=== PATIENT | male | born 1945 | race Caucasian/White ===

== ENCOUNTER 2022-10-22 12:53 | Outpatient (CLI) | payer MEDICARE, BC, SELFPAY | END 2022-10-22 12:54 | disposition home or self-care (01) | LOC: OP CLINIC 12:54 | PROVIDERS: PCP Family Medicine; Visit Provider Internal Medicine Gastroenterology | DX: Z12.11 Encounter for screening for malignant neoplasm of colon (principal); K63.5 Polyp of colon; K57.30 Diverticulosis of large intestine without perforation or abscess without bleeding; Z80.0 Family history of malignant neoplasm of digestive organs; Z86.010 Personal history of colon polyps | CPT/HCPCS: 45380; 88305; J2250; J3010 ==

== ENCOUNTER 2025-08-14 16:03 | Emergency (ER) | payer MEDICARE, BC, SELFPAY ==
--- OUTSIDE RECORDS SUMMARY | 2025-08-14 16:05 | XMS_ITS | Clinical Summary ---
Author Organization [employer] [facility] [employer] Address [address] [place] [id number] Care Team Providers Care Concrete Pile Driver Operator Name Role Phone Pcp, No Primary Care Provider Unavailabl e Allergies No known active allergies Medications multivitamin (MULTIPLE VITAMINS) tablet Take 1 tablet by mouth once daily. 0 0 Active cholecalciferol , Vitamin D3, 2,000 unit tablet Take 1 tablet by mouth once daily. 0 0 Active hydrocortisone -pramoxine 2.5%-1% RECTAL (ANALPRAM-HC) 2.5-1 % creamIndication s:Hemorrhoids, external Apply topically to affected area(s) 3 times daily if needed for Rectal Pain/Itching. 30 g 4 Active pantoprazole (PROTONIX) 40 mg delayed-release tabletIndicatio ns:Chronic GERD TAKE ONE TABLET BY MOUTH ONE TIME DAILY 90 Tablet 2 4 Active amLODIPine 10 mg tabletIndicatio ns:HTN (hypertension) TAKE ONE TABLET BY MOUTH ONE TIME DAILY 90 Tablet 2 5 Active BIPAPIndication s:YAJAIRA (obstructive sleep apnea) BIPAP machine for home use at pressure: 14/10 cmw , full face mask x1/3month with a full face cushion x1/mo 1 Each 11 5 Active BIPAPIndication s:YAJAIRA (obstructive sleep apnea) BIPAP machine for home use at pressure: 14/10 cmw , full face mask x1/3month with a full face cushion x1/mo 1 Each 11 4 10/30/20 25 Discontinu ed(Reorder (E-cancel not sent)) Active Problems Problem Noted Date Diagnosed Date Sensorineural hearing loss, bilateral 03/11/2025 Lumbar spondylitis 06/28/2023 Primary osteoarthritis of right knee 01/23/2023 Overview (01/23/2023): January 2023: Dr. Morales did left knee cortisone injection. Colon polyp 10/24/2022 Overview (10/24/2022): Colonoscopy 10/2022 TA, repeat in 5 years YAJAIRA 10/29/2012 AHI 72 06/26/2022 Assessment & Plan (06/26/2022 1:39 PM CDT): Stopped CPAP after weight loss. No current complaints. Factor 5 Leiden mutation, heterozygous 2 Torn meniscus 03/20/2022 Overview (03/20/2022): left knee HTN (hypertension) 03/20/2022 DDD (degenerative disc disease), lumbar 02/23/20 Overview (02/22/2022): ~ February 2022: L3-L4 [place] epidural steroid injection by Dr. Araujo. Encounters Date Type Department Care Team Description 08/13/2025 Travel 08/05/2025 3:00 PM CDT Office Visit [facility] [address] [place] [address] Fabien Jolly MD Sleep Follow-up 08/05/2025 Travel 08/04/2025 Orders Only [facility] Scanner 1 scan: (1-Ord) RESMED, SLEEP THERAPY REPORT, 08/04/2025 08/03/2025 Orders Only [facility] Scanner 1 scan: (1-Ord) RESMED, SLEEP THERAPY REPORT, 08/03/2025 07/31/2025 Travel 07/28/2025 1:30 PM CDT Office Visit [facility] [address] [place] [address] Tico Parikh, [facility] 07/27/2025 Travel 07/14/2025 2:30 PM CDT Office Visit [facility] [address] [place] [address] Tico Parikh AuD Hearing Aid (Fitting) 07/13/2025 Travel 06/29/2025 12:50 PM CDT Office Visit [facility] [address] [facility] [place] [address] Abdoul Scanlon MD Medicare ANNUAL (subsequent) Visit (79 year old male) 06/28/2025 Travel 06/16/2025 10:25 AM CDT Office Visit [facility] [address] [place] [address] Abdoul Scanlon MD Follow Up (Low back pain, physical therapy is helping) 06/16/[address] [address] Tico Parikh [facility]D [facility] 06/16/2025 Travel 06/13/2025 Travel 06/10/2025 11:30 AM CDT Office Visit [address] [address] Tico Parikh AuD [facility] 06/09/2025 2:15 PM CDT Ancillary Procedure [facility] [address] [place] [address] 06/09/[address] [address] Tico Parikh AuD [facility] 06/09/2025 Travel 06/03/2025 8:00 AM CDT Office Visit [address] [address] Tico Parikh [facility]D [facility] (Consultation) 06/02/2025 Travel 05/25/[address] [address] Abdoul Scanlon MD from Last 3 Months Immunizations Immunization Administration Dates Next Due COVID-19 vaccine (Cloud [employer] 30mcg/0.3mL) 12YO+ BIVALENT PF, MDV 02/02/2023,07/03/2022 COVID-19 vaccine (Stars[employer]ech 30mcg/0.3mL) 12YO+ SANDRA-SUCROSE PF, MDV 03/07/2022 COVID-19 vaccine (Cloud [employer]ech 30mcg/0.3mL) PF, MDV 07/17/2021,12/01/2020,11/10/2020 Hepatitis A (Adult) 07/10/1995,01/08/1995 Hepatitis B (Adult) 10/31/2001 Influenza, High-dose Inactivated 06/09/2025,06/07 Influenza, High-dose Quadriv alent Inactivated 06/10/2022,06/13/2021 Influenza, Inactivated AIIV4 (Age 65+ Years) Preserv Free 05/29/2023 Meningococcal Vaccine 08/10/1999 Oral Polio Vaccine 02/07/1994,06/09/1984 Pneumococcal Poly,23-Valent (Pneumovax) 06/11/20 18 Pneumococcal conj 13-Valent (Prevnar 13) 015 RSV, Recombinant ADJ Reconst ituted (Arexvy 120MCG/0.5mL) 06/12/2023 Tdap 01/07/2021,10/02/2014 Typhoid (oral) 10/02/2014 Zoster (Shingrix-RZV, recombinant) 03/29/2019, Zoster (Zostavax-ZVL, live) 03/05/2011 Family History Medical History Relation Name Comments Cancer-colon Brother 1 Cancer-prostate Brother 2 Cancer Father Relation Name Status Comments Brother 1 Brother 2 Alive Father Social History Tobacco Use Types Packs/Day Years Used Date Smoking Tobacco: Former Smokeless Tobacco: Never Tobacco Cessation:Counseling Given: Yes Comments:many years ago Alcohol Use Standard Drinks/Week Comments Yes 0 (1 standard drink = 0.6 oz pur e alcohol) 3 drinks per day PHQ-2 Answer Date Recorded PHQ-2 TOTAL SCORE 0 06/28/2025 Social Connections Answer Date Recorded Do you often feel lonely or isolated from those around you? 0 02/25/2025 Alcohol Use Answer Date Recorded How often do you have a drink containing alcohol ? 4 06/29/2025 How many drinks containing a lcohol do you have on a typical day when you are drinking? 0 06/29/2025 How often do you have five or more drinks on one occasion? 0 06/29/2025 Financial Resource Strain Answer Date R ecorded Difficulty of Paying Living Expenses 3 02/25/2025 Difficulty of Paying Living Expenses Not on file 02/25/2025 Food Insecurity Answer Date Recorded Do you worry your food will run out before you are able to buy more? 1 02/25/2025 Transportation Needs Answer Date Record ed Does lack of transportation keep you from medica l appointments? 1 02/25/2025 Does lack of transportation keep you from work, meetings or getting things that you need? 1 02/25/2025 Housing Stability Answer Date Recorded What is your housing situation today? 1 02/25/2025 Utilities Answer Date Recorded Do you have trouble paying f or utilities (for example, heat, electricity, water, phone)? 1 02/25/2025 Sex and Gender Information Value Date Recorded Sex Assigned at Male 10/14/2021 12:17 PM SERVICE OFFICER Legal Sex Male 11:48 AM CDT Gender Identity Male 10/14/2021 12:17 PM SERVICE OFFICER Sexual Orientation Straight 10/14/2021 12 :17 PM SERVICE OFFICER Occupation Industry Job Start Date Job End Date retired Not on file Not on file Not on file Obstetrics History Last Filed Vital Signs Vital Sign Reading Time Taken Comments Blood Pressure 116/65 08/05/2025 2:55 PM CDT Pulse 75 08/05/2025 2:55 PM CDT Temperature 36.6 C (97.9 F) 06/29/2025 12:49 PM CDT Respiratory Rate - - Oxygen Saturation 97% 08/05/2025 2:55 PM CDT Inhaled Oxygen Concentration - - Weight 109.4 kg (241 lb 3.2 oz) 08/05/2025 2:55 PM CDT Height 170.9 cm (5' 7.3) 08/05/2025 2 :55 PM CDT Body Mass Index 37.44 08/05/2025 2:55 PM CDT Plan of Treatment Upcoming Encounters Date Type Department Care Team (Late st Contact Info) Description 08/18/2025 3:00 PM SERVICE OFFICER Office Visit [facility] [address] [place] [address] Tico Parikh, AuD [address] [place] [phone] Health Maintenance Due Date Last Done Comments Hepatitis B series for 19+ ( 2 of 3 - 19+ 3-dose series) 11/28/2001 10/31/2001 Depression screening for age 12+ 06/29/2026 06/29/2025, 06/28/2025, 06/16/2025, Additional history exists Medicare Wellness for age 65+ 06/30/2026, 06/27/2023, 06/26/2022, Additional history exists BMI (ht and wt on same day) for age 18+ 08/05/2026 08/05/2025, 06/29/2025, 06/16/2025, Additional history exists Tetanus booster 01/07/2031 01/07/2021, 10/02/2014 Pneumococcal series for age 50+ Completed 8, 11/19/2014 Zoster (shingles) series for age 50+ Completed 03/29/2019, 12/18/2018, 03/05/2011 RSV vaccine for adults or Completed 06/12/2023 Influenza Vaccine Completed 06/09/2025, , 05/29/2023 Procedures Procedure Name Priority Date/Time Associated Diagnosis Comments SCAN-DIAGNOSTIC REPORT 08/04/2025 12:00 AM CDT SCAN-DIAGNOSTIC REPORT 08/03/2025 12:00 AM CDT CBC WITH AUTO DIFFERENTIAL Routine 06/29/2025 1:38 PM CDT Medicare annual wellness visit, subsequent LIPID PANEL W REFLEX MEASURED LDL Routine 06/29/2025 1:38 PM CDT High cholesterol ALT (SGPT) Routine 06/29/2025 1:38 PM CDT High cholesterol BASIC METABOLIC PANEL Routine 06/29/2025 1:38 PM CDT HTN (hypertension) CBC WITH AUTO DIFFERENTIAL Routine 06/29/2025 1:38 PM CDT Medicare annual wellness visit, subsequent XR SPINE LUMBAR 3 VIEWS Routine 06/09/2025 2:47 PM CDT Sacral back pain from Last 3 Months Results * SCAN-DIAGNOSTIC REPORT (08/04/2025 12:00 AM CDT) us Scanner OTHER Final Result * SCAN-DIAGNOSTIC REPORT (08/03/2025 12:00 AM CDT) us Scanner OTHER Final Result * CBC WITH AUTO DIFFERENTIAL (06/29/2025 1:38 PM CDT) WHITE BLOOD CELL COUNT 4.1 3.8 - 10.8 Thousand/u L 06/30/2025 4:13 AM CDT [facility] RED BLOOD CELL COUNT 4.47 4.20 - 5.80 Million/uL 06/30/2025 4:13 AM CDT [facility] HEMOGLOBIN 14.6 13.2 - 17.1 g/dL 06/30/2025 4:13 AM CDT [facility] HEMATOCRIT 42.7 38.5 - 50.0 % 06/30/2025 4:13 AM CDT [facility] MCV 95.5 80.0 - 100.0 fL 06/30/2025 4:13 AM CDT [facility] MCH 32.7 27.0 - 33.0 pg 06/30/2025 4:13 AM CDT [facility] MCHC 34.2 32.0 - 36.0 g/dL 06/30/2025 4:13 AM CDT [facility] Comment: For adults, a slight decrease in the calculated MCHC value (in the range of 30 to 32 g/dL) is most likely not clinically significant; however, it should be interpreted with caution in correlation with other red cell parameters and the patient's clinical condition. RDW 12.6 11.0 - 15.0 % 06/30/2025 4:13 AM CDT [facility] PLATELET COUNT 182 140 - 400 Thousand/u L 06/30/2025 4:13 AM CDT [facility] MPV 9.6 7.5 - 12.5 fL 06/30/2025 4:13 AM CDT [facility] NEUTROPHILS 58.7 % 06/30/2025 4:13 AM CDT [facility] LYMPHOCYTES 26.8 % 06/30/2025 4:13 AM CDT [facility] MONOCYTES 11.3 % 06/30/2025 4:13 AM CDT [facility] EOSINOPHILS 2.2 % 06/30/2025 4:13 AM CDT [facility] BASOPHILS 1.0 % 06/30/2025 4:13 AM CDT [facility] ABSOLUTE NEUTROPHILS 2407 1500 - 7800 cells/uL 06/30/2025 4:13 AM CDT [facility] ABSOLUTE LYMPHOCYTES 1099 850 - 3900 cells/uL 06/30/2025 4:13 AM CDT [facility] ABSOLUTE MONOCYTES 463 200 - 950 cells/uL 06/30/2025 4:13 AM CDT [facility] ABSOLUTE EOSINOPHILS 90 15 - 500 cells/uL 06/30/2025 4:13 AM CDT [facility] ABSOLUTE BASOPHILS 41 0 - 200 cells/uL 06/30/2025 4:13 AM CDT [facility] Blood BLOOD SPECIMEN / Unknown [facility] / Unknown 06/29/2025 1:38 PM CDT 06/29/2025 1:38 PM CDT Abdoul Scanlon MD HEMATOLOGY Final Re sult [facility] [address] [place] [address], * LIPID PANEL W REFLEX MEASURED LDL (06/29/2025 1:38 PM CDT) CHOLESTEROL, TOTAL 175 <200 mg/dL 06/30/2025 4:33 AM CDT [facility] TRIGLYCERIDES 145 <150 mg/dL 06/30/2025 4:33 AM CDT [facility] HDL CHOLESTEROL 70 > OR = 40 mg/dL 06/30/2025 4:33 AM CDT [facility] NON HDL CHOLESTEROL 105 <130 mg/dL (calc) 06/30/2025 4:33 AM CDT [facility] Comment: For patients with diabetes plus 1 major ASCVD risk factor, treating to a non-HDL-C goal of <100 mg/dL (LDL-C of <70 mg/dL) is considered a therapeutic option. CHOL/HDLC RATIO 2.5 <5.0 (calc) 06/30/2025 4:33 AM CDT [facility] LDL-CHOLESTEROL 80 mg/dL (calc) 06/30/2025 4:33 AM CDT [facility] Comment: Reference range: <100 Desirable range <100 mg/dL for primary prevention; <70 mg/dL for patients with CHD or diabetic patients with > or = 2 CHD risk factors. LDL-C is now calculated using the Coleman calculation, which is a validated novel method providing better accuracy than the Friedewald equation in the estimation of LDL-C. Froy SS et al. JIE. 2013;310(12): 4161-9537 (http://education.Impinj.CorasWorks/faq/ZHL674) Blood BLOOD SPECIMEN / Unknown [facility] / Unknown 06/29/2025 1:38 PM CDT 06/29/2025 1:38 PM CDT us Abdoul Scanlon MD CHEMISTRY Final Re sult Performing Organization Address City/[facility]/ZIP Co de Phone Number [facility] [address] [address], [place] [phone] * ALT (SGPT) (06/29/2025 1:38 PM CDT) ALT 10 9 - 46 U/L 06/30/2025 4:33 AM CDT [facility] Blood BLOOD SPECIMEN / Unknown [facility] / Unknown 06/29/2025 1:38 PM CDT 06/29/2025 1:38 PM CDT Abdoul Scanlon MD CHEMISTRY Final Re sult [facility] [address] [address], [place] [phone] * (ABNORMAL) BASIC METABOLIC PANEL (06/29/2025 1:38 PM CDT) SODIUM 140 135 - 146 mmol/L 06/30/2025 4:33 AM CDT [facility] POTASSIUM 4.3 3.5 - 5.3 mmol/L 06/30/2025 4:33 AM CDT [facility] CARBON DIOXIDE 27 20 - 32 mmol/L 06/30/2025 4:33 AM CDT [facility] GLUCOSE 129(H) 65 - 99 mg/dL 06/30/2025 4:33 AM CDT [facility] Comment: Fasting reference interval For someone without known diabetes, a glucose value >125 mg/dL indicates that they may have diabetes and this should be confirmed with a follow-up test. CALCIUM 9.2 8.6 - 10.3 mg/dL 06/30/2025 4:33 AM CDT [facility] CREATININE 0.89 0.70 - 1.22 mg/dL 06/30/2025 4:33 AM CDT [facility] BUN/CREATININE RATIO SEE NOTE: 6 - 22 (calc) 06/30/2025 4:33 AM CDT [facility] Comment: Not Reported: BUN and Creatinine are within reference range. EGFR 87 > OR = 60 mL/min/1. 73m2 06/30/2025 4:33 AM CDT [facility] UREA NITROGEN (BUN) 13 7 - 25 mg/dL 06/30/2025 4:33 AM CDT [facility] ELECTROLYTE BALANCE 9 7 - 17 mmol/L (calc) 06/30/2025 4:33 AM CDT [facility] CHLORIDE 104 98 - 110 mmol/L 06/30/2025 4:33 AM CDT [facility] Blood BLOOD SPECIMEN / Unknown [facility] / Unknown 06/29/2025 1:38 PM CDT 06/29/2025 1:38 PM CDT us Abdoul Scanlon MD CHEMISTRY Final Re sult [facility] [address] [place] [address], [place] [phone] * XR SPINE LUMBAR 3 VIEWS (06/09/2025 2:47 PM CDT) Anatomical Region Laterality Modality LUMBAR SPINE Computed Radiogr aphy 06/09/2025 3:50 PM CDT Impressions 06/09/2025 3:50 PM CDT Multilevel degenerative disc disease. 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 Dictated by Moiz Chris MD @ 06/09/2025 3:50:03 PM (Electronically Signed) Narrative 06/09/2025 3:50 PM CDT For Patients: As a result of the Cures Act, medical imaging exams and procedure reports are released immediately into your electronic medical record. You may view this report before your referring provider. If you have questions, please contact your health care provider. INDICATION: Sacral back pain TECHNIQUE: 3-view lumbar spine. 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 Multilevel discogenic spurring with bridging osteophyte formation in the upper lumbar spine. No vertebral body compression fracture. SI joints maintained. Procedure Note Moiz Chris MD - 06/09/2025 For Patients: As a result of the Cures Act, medical imagingexams and procedure reports are released immediately into your electronicmedical record. You may view this report before your referring provider.If you have questions, please contact your health care provider. INDICATION: Sacral back pain TECHNIQUE: 3-view lumbar spine. 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 Multileveldiscogenic spurring with bridging osteophyte formation in the upper lumbarspine. No vertebral body compression fracture. SI joints maintained. IMPRESSION: Multilevel degenerative disc disease. Chronic grade 1 spondylolyticspondylolisthesis of L5 on S1. Dictated by Moiz Chris MD @ 06/09/2025 3:50:03 PM (Electronically Signed) Abdoul Scanlon MD GENERAL IMAGING Final Re sult from Last 3 Months Insurance MEDICARE [place] ONLY [place] MEDICARE PART A HB ONLY MEDICARE PART B HB ONLY Care Teams Concrete Pile Driver Operator Relationship Specialty Start Date End Date Pcp, No . PCP - General 06/20/21
--- OUTSIDE RECORDS SUMMARY | 2025-08-14 16:05 | XMS_ITS | CCD ---
Author Name Interface, [id number] Address [address] [place] [address] [facility]iatric Nursing Assistant ialists Address [address] [place] [address] Care Team Providers Care Forklift Wheel Loader Name Role Phone Ayan DURHAM, PhD, FACP, Christian Kemp Unavailable Unavailable Allergies and Adverse Reactions Medication/Group Name Reaction Severity Date No known allergies Reason for Visit Functional Status Date Name/Question Score/Answer 11/15/2008 Karnofsky performance status 100 Medications Date Name Route Dose Frequency Instructions Start Date End Date Status Fill Status Indication 05/13 Aspirin Oral PO 1.0 TABLE T(S) daily 2008 active 05/13 Multivitam ins Oral Tablet PO 1.0 TABLE T(S) daily 2008 active Problems Diagnosis Status Date of Diagnosis Resolution Date Hypercoagulability state (finding) Active 2007 Social History Date Name Value 10/17/2019 Sex Male
--- OUTSIDE RECORDS SUMMARY | 2025-08-14 16:05 | XMS_ITS | Clinical Summary ---
Author Organization [facility] Address [address], [place] [address] Care Team Providers Care Data Analysis Assistant Name Role Phone Clinician, Not Found MD Primary Care Provider Un available Source Comments You are receiving this document as you are listed as the primary care provider,follow-up provider, or the patient has been referred to you for consultation.This is in compliance with the Medicare and[facility] EHR Incentive Program,which states Providers who transition their patient to another setting of careor provider of care or refers their patient to another provider of care shouldprovide summary care record for each transition of care or referral. [facility] Allergies No known active allergies Medications Cholecalciferol (VITAMIN D3) 50 MCG (1999) Active multivitamin with minerals tablet Active pantoprazole (PROTONIX IV) 40 MG injection Active amLODIPine (NORVASC) 10 MG tablet Take 1 Tablet (10 mg) by mouth daily. Active Active Problems Problem Noted Date Diagnosed Date Osteoarthritis of right knee 04/22/2023 Social History Tobacco Use Types Packs/Day Years Used Date Smoking Tobacco: Former Cigarettes Tobacco Cessation:Counseling Given: Not Answered Sex and Gender Information Value Date Recorded Sex Assigned at Male 04/15/2023 12:06 PM CDT Legal Sex Male 5:18 PM CDT Gender Identity Male 04/15/2023 12:06 PM CDT Sexual Orientation Straight 03/22/2023 5: 25 PM CDT Last Filed Vital Signs Vital Sign Reading Time Taken Comments Blood Pressure 151/75 08/08/2023 2:35 PM CDT Pulse 75 08/08/2023 2:35 PM CDT Temperature 36.8 C (98.2 F) 08/08/2023 2:35 PM CDT Respiratory Rate 16 08/08/2023 2:35 PM CDT Oxygen Saturation 94% 08/08/2023 2:35 PM CDT Inhaled Oxygen Concentration - - Weight 110.7 kg (244 lb) 08/08/2023 8:47 AM CDT Height 172 cm (5' 7.7) 08/08/2023 8:47 AM CDT Body Mass Index 37.43 08/08/2023 8:47 AM CDT Plan of Treatment Health Maintenance Due Date Last Done Comments RSV Vaccine (1 - 1-dose 75+ series) 2019 Medicare Annual Wellness Visit 06/20/2022 06/20/2021 COVID-19 Vaccine ( season) 2025 06/10/2024, 02/04/2024, 07/03/2023, Additional history exists Influenza Vaccine (#1) 2025 , 05/29/2023, 06/10/2022, Additional history exists DTaP/Tdap/Td Vaccine (3 - Tdap) 01/07/2031 01/07/2021, 10/02/2014 HepA Vaccine Aged Out 07/10/1995, 01/08/1995 No lo nger eligible based on patient's age to complete this topic MCV4 Vaccine Aged Out 08/10/1999 No longer eligi ble based on patient's age to complete this topic Pneumococcal Vaccine 50+ Yrs Completed 06/11/2018, 11/19/2014 Zoster/Shingles Vaccine Completed 03/29/20 19, 12/18/2018, 03/05/2011 HepB Vaccine Aged Out No longer eligi ble based on patient's age to complete this topic Hib Vaccine Aged Out No longer eligi ble based on patient's age to complete this topic Meningococcal B Vaccine Aged Out No l onger eligible based on patient's age to complete this topic Medical Devices Implanted Type Area Aircraft Part Assembler Device Identifier Shelf Expiration Date Model / Serial / Lot Yohan Bone Biomet R 1x40 - [id number] Implanted:Qty: 1 on 08/08/2023 by Christo Sandoval MD at [facility] Right: K[employer]EE [employer] 01/04/2026 [id number] / 0 / [id number] Comp Fem Uka Yohan Rm/Ll Sz5 - Ibalance - [id number] Implanted:Qty: 1 on 08/08/2023 by Christo Sandoval MD at [facility] DEVICE Right: KNEE [employer] 12/01/2027 AR-501-UFRE / 0 / [id number]-511-T5r - [id number] Implanted:Qty: 1 on 08/08/2023 by Christo Sandoval MD at [facility] Right: KNEE [employer] 04/05/2025 AR-511-T5R / 0 / [id number] Description:ibalance uka tib ial cemented tray size 5 rm/ll [id number] - [id number] Implanted:Qty: 1 on 08/08/2023 by Christo Sandoval MD at [facility] Right: KNEE [employer] 12/04/2024 [id number] / 0 / [id number] Description:ibalance uka tib ial bearing implant vit e size 5 (8mm thickness) [place] [address] [address] [place] [address] FEDERAL MEDICARE MEDICARE [facility] Advance Directives * Full Code (Latest Code Status on File) Date Activated Date Inactivated Comments 08/08/2023 12:38 PM 08/08/2023 5:12 PM Care Teams Data Analysis Assistant Relationship Specialty Start Date End Date Clinician, Not Found, [place] [address] PCP - General 08/26/23
[2025-08-14 16:08] VITALS: BP 134/64; PULSE 74; RESP 18; TEMP 36.2; O2SAT 96
--- NOTE | 2025-08-14 16:22 | ED_ITS ---
HPI - Eye Problem General Chief complaint: Eye Problems Stated complaint: Vision problem, Rt Blurry and pain Time Seen by Provider: 08/14/25 16:04 History of Present Illness HPI Narrative: Patient is a 79-year-old gentleman who use a CPAP. Two nights ago he felt like his CPAP was causing right eye irritation. Since then there eyes become increasingly red but his vision is been unchanged. He has had no fevers no chills no change in his apnea management. He has had minimal mattering and no pain with exposure to light. He has full range of motion of his right eye and has no other significant symptoms of URI. Related Data Home Medications ?Medication ?Instructions ?Recorded ?Confirmed amlodipine 10 mg tablet 10 mg PO DAILY 08/28/2205/31 aspirin 81 mg chewable tablet 81 mg PO DAILY 08/28/22 08/14/25 pantoprazole 40 mg tablet,delayed 40 mg PO DAILY 08/2808/14/25 release Previous Rx's ?Medication ?Instructions ?Recorded fluorouracil 5 % topical cream 1 applic topical DIR ECTED #40 04/23/23 grams Allergies Allergy/AdvReac Type Severity Reaction Status Date / Time No Known Drug Allergies Allergy Verified 08/14/25 16:11 Review of Systems Status of ROS: Reports: 10 or more systems reviewed and unremarkable except as noted in History and below [facility] Medical History Actinic keratosis ?L57.0 - Actinic keratosis (ICD-10) Social History Smoking Status: Never smoker How often do you have a drink containing alcohol: 4 or more times a week AUDIT-C Alcohol total score: 4 Non-prescribed substance use: denies use Exam Narrative: Exam Narrative: EXAM GENERAL: Patient appears comfortable and well. EYES: No scleral icterus. Mild conjunctival injection her right eye. LYMPH: No supraclavicular or cervical lymphadenopathy. SKIN: Visible skin seen during exam normal or with benign process only. EXT: No dependent lower extremity pedal edema. HEART: Regular rate and rhythm with no murmurs, rubs, or gallops. LUNGS: Clear to auscultation bilaterally with no crackles or wheezes. ABD: Soft, non tender, non distended. PSYCH: Good eye contact, speech is not pressured. Const: Vital Signs, click to edit/add: Vital Signs - 24 hr 08/14/25 16:08 Temperature 97.2 F L Pulse Rate [Pulse Oximeter] 74 Respiratory Rate 18 Blood Pressure [Ri ght Upper Arm] 134/64 Pulse Oximetry 96 Oxygen Delivery Me thod Room Air Course Vital Signs Vital signs: Initial Vital Signs Temperature 97.2 F L 08/14/25 16:08 Temperature Source Temporal Artery Scan 08/14/25 16:08 Pulse Rate 74 08/14/25 16:08 Respiratory Rate 18 08/14/25 16:08 Blood Pressure 134/64 08/14/25 16:08 Blood Pressure Mean 87 08/14/25 16:08 Blood Pressure Position Sitting 08/14/25 16:08 Pulse Oximetry 96 08/14/25 16:08 Oxygen Delivery Method Room Air 08/14/25 16:08 Vital Signs Temperature 97.2 F L 08/14/25 16:08 Pulse Rate 74 08/14/25 16:08 Respiratory Rate 18 08/14/25 16:08 Blood Pressure 134/64 08/14/25 16:08 Pulse Oximetry 96 08/14/25 16:08 Oxygen Delivery Method Room Air 08/14/25 16:08 Temperature 97.2 F L 08/14/25 16:08 Pulse Rate 74 08/14/25 16:08 Respiratory Rate 18 08/14/25 16:08 Blood Pressure 134/64 08/14/25 16:08 Pulse Oximetry 96 08/14/25 16:08 Oxygen Delivery Method Room Air 08/14/25 16:08 MDM - Eye Problem MDM Narrative Medical decision making narrative: Patient presents with mild conjunctivitis. No other findings on exam. Vital signs are normal. This time I did treated with gentamicin drops in in hydration. He will follow-up with his primary physician as needed. Discharge Plan Discharge Clinical Impression: Conjunctivitis Patient Disposition: Home, Self-Care Condition: Stable Instructions: Conjunctivitis (ED) Additional Instructions: Gentamicin drops as directed Follow-up with your doctor next week if not better. Activity Level: No Restrictions Discharge Diet: Regular Prescriptions: No Action aspirin 81 mg tablet,chewable 81 mg PO DAILY pantoprazole 40 mg tablet,delayed release (DR/EC) 40 mg PO DAILY amlodipine 10 mg tablet 10 mg PO DAILY fluorouracil 5 % cream 1 applic topical DIRECTED Qty: 40 0RF Rx Instructions: Apply topically to affectd areas on face one day every week Follow Up/Referrals: Abdoul Scanlon MD [Primary Care Provider, Family Practice] Stand Alone Forms: G[employer]el Info Instructions
--- OUTSIDE RECORDS SUMMARY | 2025-08-14 16:35 | XMS_ITS | CCD ---
Author Name Interface, [id number] lity Address [address] [place] [address] [facility] [employer] Address [address] [place] [address] Care Team Providers Care Supervising Fire Marshal Name Role Phone Ayan DURHAM, PhD, FACP, [...]
--- OUTSIDE RECORDS SUMMARY | 2025-08-14 16:35 | XMS_ITS | CCD ---
Author Name Interface, [id number] lity Address [address] [place] [address] [facility] [employer] Address [address] [place] [address] Care Team Providers Care Gas Cutter Name Role Phone Ayan DURHAM, PhD, FACP, [...]
== END 2025-08-14 16:38 | disposition home or self-care (01) ==
LOC: ED 16:33
PROVIDERS: Emergency Provider Internal Medicine; PCP Family Medicine
DX: H10.9 Unspecified conjunctivitis (principal)
CPT/HCPCS: 99283; A9270

== ENCOUNTER 2025-09-21 10:24 | Outpatient (CLI) | payer MEDICARE, BC, SELFPAY | END 2025-09-21 10:25 | disposition home or self-care (01) | LOC: INJ CL 10:27 | PROVIDERS: PCP Family Medicine; Visit Provider Family Medicine | DX: M53.3 Sacrococcygeal disorders, not elsewhere classified (principal) | CPT/HCPCS: 27096; J0702; Q9966 ==